=== PATIENT | female | born 1940 | race Hispanic/Latino ===

== ENCOUNTER 2016-10-08 11:29 | Outpatient (CLI) | payer MEDICARE ==
[2016-10-08 12:16] LABS: Bilirubin Negative (Negative); Blood, Urine Moderate (Negative); Clarity Clear (Clear); Glucose, Urine (Dipstick) Negative (Negative); Leukocyte Negative (Negative); Nitrite Negative (Negative); Protein, Urine (Dipstick) Negative (Neg-Trace); Urobilinogen 0.2 mg/dL (0.2-1.0); pH, Urine 5.5 (5.0-9.0)
[2016-10-08 12:28] LABS: Bacteria/HPF Rare-Few HPF (None Seen); Crystals/HPF 1+ CA OXALATE HPF (Negative); Squamous Epithelial 0-3 HPF (0-3); WBC/HPF 0-3 HPF (0-3)
== END 2016-10-08 11:30 | disposition home or self-care (01) ==
LOC: NAV LAB 11:29
PROVIDERS: ATTEND Urology
DX: R31.29 Other microscopic hematuria (principal)
CPT/HCPCS: 81001; 88112

== ENCOUNTER 2016-10-25 09:22 | Outpatient (CLI) | payer MEDICARE ==
[2016-10-25 12:29] LABS: #Eosinphils 0.2 thou/uL (0.0-0.7); #Lymphocytes 1.6 thou/uL (1.20-3.40); #Monocytes 0.3 thou/uL (0.11-0.59); #Neutrophils 1.7 thou/uL (1.40-6.50); %Basophils 0.8 % (0.0-1.0); %Eosinophils 5.1 % (0.0-10.0); %Lymphocytes 42.6 % (21.0-51.0); %Monocytes 7.8 % (0.0-10.0); %Neutrophils 43.7 % (42.0-75.0); Hemoglobin 13.6 g/dL (12.0-16.0); Mean Corpuscular HGB CONC 32.4 g/dL (32.0-36.0); Mean Corpuscular Hemoglobin 30.4 pg (27.0-31.0); Mean Corpuscular Volume 93.9 fl (81.0-99.0); Mean Platelet Volume 7.6 fL (7.4-10.4); Platelet Count 192 thou/uL (130-400); RBC Distribution Width 11.9 % (11.5-14.5); Red Blood Cell (RBC) Count 4.46 mill/uL (4.20-5.40); White Blood Cell (WBC) Count 3.9 thou/uL (4.8-10.8)
[2016-10-25 13:07] LABS: ALT (SGPT) 13 U/L (8-55); AST (SGOT) 16 U/L (5-34); Albumin 4.1 g/dL (3.4-4.8); Alkaline Phosphatase 89 U/L (40-150); Anion Gap 14 mmol/L (10-20); BUN (Urea Nitrogen) 11 mg/dL (9.8-20.1); Bilirubin, Total 0.3 mg/dL (0.2-1.2); Calc. Creatinine Clearance 0 mL/min (70-130); Calcium 9.3 mg/dL (7.8-10.44); Carbon Dioxide 27 mmol/L (23-31); Cardiac Risk 3.6 (Less than 4.5); Chloride 103 mmol/L (98-107); Cholesterol 279 mg/dl (< 200 Desired); Estimated GFR-MDRD 70; Globulin 2.9 g/dL (2.4-3.5); Glucose 92 mg/dL (83-110); HDL Cholesterol 77 mg/dL (>60 Neg Risk); LDL Cholesterol, Calculated 157 mg/dL; Potassium 4.4 mmol/L (3.5-5.1); Sodium 140 mmol/L (136-145); Triglycerides 224 mg/dL (Less than 150)
[2016-10-25 13:33] LABS: Bilirubin Negative (Negative); Blood, Urine Trace (Negative); Clarity Clear (Clear); Glucose, Urine (Dipstick) Negative (Negative); Leukocyte Negative (Negative); Nitrite Negative (Negative); Protein, Urine (Dipstick) Negative (Neg-Trace); Urobilinogen 0.2 mg/dL (0.2-1.0)
[2016-10-25 13:59] LABS: Bacteria/HPF Rare-Few HPF (None Seen); Squamous Epithelial 0-3 HPF (0-3); WBC/HPF 0-3 HPF (0-3)
== END 2016-10-25 09:23 | disposition home or self-care (01) ==
LOC: NAVSJIPCSP 09:22
PROVIDERS: ATTEND Internal Medicine
DX: E78.5 Hyperlipidemia, unspecified (principal); Z79.899 Other long term (current) drug therapy
CPT/HCPCS: 36415; 80053; 80061; 81003; 81015; 85025

== ENCOUNTER 2020-09-05 16:34 | Outpatient (CLI) | payer MEDICARE, MEDICAID | END 2020-09-05 16:35 | disposition home or self-care (01) | LOC: NAV RAD 16:34 | PROVIDERS: ATTEND Internal Medicine | DX: S60.151A Contusion of right little finger with damage to nail, initial encounter (principal); S62.636A Displaced fracture of distal phalanx of right little finger, initial encounter for closed fracture ==

== ENCOUNTER 2023-04-05 10:54 | Outpatient (CLI) | payer MEDICARE, MEDICAID | END 2023-04-05 10:55 | disposition home or self-care (01) | LOC: NAV CT 10:54 | PROVIDERS: ATTEND Family Medicine | DX: S09.90XA Unspecified injury of head, initial encounter (principal); M25.512 Pain in left shoulder; R20.0 Anesthesia of skin; M54.2 Cervicalgia; M54.50 Low back pain, unspecified; W19.XXXS Unspecified fall, sequela; M51.36 Other intervertebral disc degeneration, lumbar region; M51.37 Other intervertebral disc degeneration, lumbosacral region; M47.812 Spondylosis without myelopathy or radiculopathy, cervical region; M19.012 Primary osteoarthritis, left shoulder | CPT/HCPCS: 70450; 72125; 72131 ==